=== PATIENT | female | born 1985 | race Caucasian/White ===

== ENCOUNTER 2018-01-18 13:27 | Emergency (ER) | payer MEDICAID ==
--- NOTE | 2018-01-18 14:04 | Emergency Department Record ---
History of Present Illness - General Chief complaint: Rash Stated complaint: RASH Time Seen by Provider: 01/18/18 13:37 Source: Patient Mode of Arrival: Ambulatory Limitations: No limitations - History of Present Illness Initial comments: The patient has had an itchy rash all over for the last 2 weeks. She was told it could be scabies and was treated with a steroid cream and scabies cream. Now the itching is not better and the rash continues to come and go mainly on the abdomen. She denies any new medicines, soaps or new pets. MD complaint: Rash Onset/Timin -: Week(s) Location: Generalized Consistency: Constant Improves with: None Worsens with: None Context: None Associated symptoms: Itching Treatments Prior to Arrival: Other Treatment Prior to Arrival Comment:: NIX - Related Data Previous Rx's Medication Instructions Recorded Hydroxyzine HCl [Atarax] 25 mg PO TID PRN #21 tab 01/18/18 Prednisone [Prednisone 20Mg] 20 mg PO ASDIR #15 tab 01/18/18 Allergies Allergy/AdvReac Type Severity Reaction Status Date / Time diphenhydramine Allergy RASH Verified 01/18/18 13:42 [From Benadryl] Travel Screening - Travel/Exposure Within Last 30 Days Have you traveled within the last 30 days?: No - Travel/Exposure Within Last Year Have you traveled outside the [place] in the last year?: No - Additonal Travel Details Have you been exposed to anyone with a communicable illness?: No - Travel Symptoms Symptom Screening: None Review of Systems Constitutional: Denies: Chills, Fever Eyes: Denies: Eye discharge ENT: Denies: Congestion, Throat pain Respiratory: Denies: Cough, Dyspnea Past Medical History - SOCIAL HISTORY Smoking Status: Never smoker Alcohol Use: Occasional Drug Use: None - RESPIRATORY Hx Respiratory Disorders: No - CARDIOVASCULAR Hx Cardio Disorders: No - NEURO Hx Neuro Disorders: No - GI Hx GI Disorders: No - Hx Genitourinary Disorders: No - ENDOCRINE Hx Endocrine Disorders: No - MUSCULOSKELETAL Hx Musculoskeletal Disorders: No - PSYCH Hx Psych Problems: No - HEMATOLOGY/ONCOLOGY Hx Hematology/Oncology Disorders: No Family Medical History Any Significant Family History?: Yes Hx Diabetes: Mother Hx HTN: Father Physical Exam - General General Appearance: Alert, Oriented x3, Cooperative, No acute distress - Head Head exam: Atraumatic, Normocephalic, Normal inspection - Eye Eye exam: Normal appearance, PERRL - Neck Neck exam: Normal inspection, Full ROM. negative: Tenderness - Respiratory Respiratory exam: Normal lung sounds bilaterally. negative: Respiratory distress - Cardiovascular Cardiovascular Exam: Regular rate, Normal rhythm, Normal heart sounds - GI/Abdominal GI/Abdominal exam: Soft, Normal bowel sounds. negative: Tenderness - Extremities Extremities exam: Normal inspection, Full ROM, Normal capillary refill. negative: Tenderness - Neurological Neurological exam: Alert. negative: Motor sensory deficit - Skin Skin exam: Rash (There is a scattererd erythematous macular rash that appear to be mildly scaley lesions mainly on the abdomen and extremities. There is no rash that appears to be from insect bites or scabies. There is no rash between the toes or fingers.). negative: Urticaria Course Vital Signs 01/18/18 13:45 Temperature 97.7 F Pulse Rate 103 H Respiratory 16 Rate Blood Pressure 138/77 Pulse Ox 99 - Reevaluation(s) Reevaluation #1: I did discuss the need to treat for an allergic rxn and for possible Pityriasis Versicolor. She is to see her PCP later this week for recheck. 01/18/18 14:11 Reevaluation #2: I did discuss the issues taking the Atarax. She did have some facial swelling that COULD have been from Benadryl but most likely was from her allergic rxn. I did discuss the risks of taking the Atarax and that she COULD have facial or lip swelling or a worse allergic rxn and she does accept the risks. 01/18/18 14:13 Disposition Disposition: Discharge Clinical Impression: Skin rash Disposition: Home, Self-Care Condition: (2) Stable Instructions: Acute Rash (ED) Additional Instructions: Please use the Atarax and Prednisone as directed. Please also treat for Pityriasis Versicolor, use Selenium Sulfide 2.5% lotion, apply for 10 minutes on skin daily for 1-4 weeks. Please see your family doctor for recheck next week. Prescriptions: Hydroxyzine HCl [Atarax] 25 mg PO TID PRN #21 tab PRN Reason: Rash Prednisone [Prednisone 20Mg] 20 mg PO ASDIR #15 tab Forms: Patient Portal Access Time of Disposition: 14:04 Quality - Quality Measures Quality Measures: N/A - Blood Pressure Screening View Details: Yes Does Patient Have Any of the Following: No Blood Pressure Classification: Pre-Hypertensive BP Reading Systolic Measurement: 138 Diastolic Measurement: 77 Screening for High Blood Pressure: < Pre-Hypertensive BP, F/U Documented > [ G8950] Pre-Hypertensive Follow-up Interventions: Referral to alternative/primary care provider.
== END 2018-01-18 14:13 | disposition home or self-care (01) ==
LOC: ER 13:27
DX: R21 Rash and other nonspecific skin eruption (principal); R22.0 Localized swelling, mass and lump, head
CPT/HCPCS: 99282

== ENCOUNTER 2018-01-30 09:51 | Emergency (ER) | payer MEDICAID ==
[2018-01-30] MEDS ORDERED: HYDROXYZINE PAMOATE 25 MG CAPSULE PO ONE (10:07)
--- NOTE | 2018-01-30 10:14 | Emergency Department Record ---
History of Present Illness - General Chief complaint: Rash Stated complaint: RASH ON ARMS/LEGS SIDES Time Seen by Provider: 01/30/18 10:02 Source: Patient Mode of Arrival: Ambulatory Limitations: No limitations - History of Present Illness Initial comments: The patient is here due to a rash on her body off and on for a month. She was here in the ER about 2 weeks ago for it and was given Atarax and Prednisone and it did resolve. Now yesterday the rash returned mainly on the arms, legs, and minimally the face. She has had no SAIDA, SOB, difficulty swallowing or breathing. She has not taken anything for it today and just decided to come to the ER. MD complaint: Rash Onset/Timin -: Week(s) Location: Face, LUE, RUE, LLE, RLE Consistency: Getting worse Worsens with: None Treatments Prior to Arrival: Benadryl - Related Data Previous Rx's Medication Instructions Recorded Hydroxyzine HCl [Atarax] 25 mg PO TID PRN #21 tab 01/18/18 Hydroxyzine HCl [Atarax] 25 mg PO TID #21 tablet 01/30/18 Allergies Allergy/AdvReac Type Severity Reaction Status Date / Time diphenhydramine Allergy RASH Verified 01/18/18 13:42 [From Benadryl] Travel Screening - Travel/Exposure Within Last 30 Days Have you traveled within the last 30 days?: No - Travel/Exposure Within Last Year Have you traveled outside the [place] in the last year?: No - Additonal Travel Details Have you been exposed to anyone with a communicable illness?: No - Travel Symptoms Symptom Screening: None Review of Systems Constitutional: Denies: Chills, Fever Eyes: Denies: Eye discharge ENT: Denies: Congestion Respiratory: Denies: Cough, Dyspnea Past Medical History - SOCIAL HISTORY Smoking Status: Never smoker Alcohol Use: Rare Drug Use: None - RESPIRATORY Hx Respiratory Disorders: No - CARDIOVASCULAR Hx Cardio Disorders: No - NEURO Hx Neuro Disorders: No - GI Hx GI Disorders: No - Hx Genitourinary Disorders: No - ENDOCRINE Hx Endocrine Disorders: No - MUSCULOSKELETAL Hx Musculoskeletal Disorders: No - PSYCH Hx Psych Problems: No - HEMATOLOGY/ONCOLOGY Hx Hematology/Oncology Disorders: No Family Medical History Any Significant Family History?: Yes Hx Diabetes: Mother Hx HTN: Father Physical Exam - General General Appearance: Alert, Oriented x3, Cooperative, No acute distress - Head Head exam: Atraumatic, Normocephalic, Normal inspection - Eye Eye exam: Normal appearance, PERRL, EOMI - ENT Throat exam: Normal inspection. negative: Tonsillar erythema, Tonsillar exudate - Neck Neck exam: Normal inspection, Full ROM. negative: Tenderness - Respiratory Respiratory exam: Normal lung sounds bilaterally. negative: Respiratory distress - Cardiovascular Cardiovascular Exam: Regular rate, Normal rhythm, Normal heart sounds - GI/Abdominal GI/Abdominal exam: Soft, Normal bowel sounds. negative: Tenderness - Extremities Extremities exam: Normal inspection, Full ROM, Normal capillary refill. negative: Tenderness - Neurological Neurological exam: Alert. negative: Motor sensory deficit - Skin Skin exam: Rash (There is a scattered macular erythematous rash mainly to the arms. The lesions are irregular and less than 1 cm in size. They do clara and are not tender or palpable.) Course Vital Signs 01/30/18 09:53 Temperature 97.4 F L Pulse Rate 90 Respiratory 20 Rate Blood Pressure 184/100 Pulse Ox 99 - Reevaluation(s) Reevaluation #1: The patient is doing better at this time. She denies any itching and states the rash may be slightly better. 01/30/18 11:04 Reevaluation #2: The patient is doing very well at this time. She denies any trouble breathing or swallowing. Her rash is still present mainly on the arms but is not itchy. We are trying to get the patient into the Specialty clinic with Dr. Way and are told they will contact the patient later today for further evaluation. 01/30/18 11:27 Medical Decision Making - Lab Data Result diagrams: 01/30/18 10:25 01/30/18 10:25 Disposition Disposition: Discharge Clinical Impression: Skin rash Disposition: Home, Self-Care Condition: (2) Stable Instructions: Acute Rash (ED) Additional Instructions: Please take the Atarax along with Pepcid as directed and please see Dr. Way in the Specialty clinic tomorrow. Please also see your family doctor due to your elevated BP. Return to the ER for any worsening symptoms. Prescriptions: Hydroxyzine HCl [Atarax] 25 mg PO TID #21 tablet Referrals: [facility] [Provider Group] Forms: Patient Portal Access Time of Disposition: 11:31 Quality - Quality Measures Quality Measures: N/A - Blood Pressure Screening View Details: Yes Does Patient Have Any of the Following: No Blood Pressure Classification: Hypertensive Reading Systolic Measurement: 184 Diastolic Measurement: 100 Screening for High Blood Pressure: < First Hypertensive BP, F/U Documented > [ G8950] First Hypertensive Follow-up Interventions: Referral to alternative/primary care provider.
[2018-01-30 10:29] LABS: BASO % 0.3 % (0-6); GRAN % 71.8 % (47-80); HEMATOCRIT 46.5 % (35.0-47.0); HEMOGLOBIN 15.4 gm/dl (11.6-16.0); LYMPH % 20.9 % (16-45); MEAN CELL VOLUME 95.9 fl (81-97); MEAN CORPUSCULAR HEMOGLOBIN 31.8 pg (27-33); MEAN CORPUSCULAR HGB CONC 33.1 g/dl (32-36); MEAN PLATELET VOLUME 8.5 fl (7.4-10.4); PLATELET COUNT 377 K/uL (130-400); RED BLOOD COUNT 4.85 M/uL (3.80-5.40); RED CELL DISTRIBUTION WIDTH 13.3 % (11.5-14.5); WHITE BLOOD COUNT W/O DIFF 12.9 K/uL (4.2-12.2)
[2018-01-30 10:40] LABS: BLOOD UREA NITROGEN 16 mg/dL (6-20); CREATININE 0.7 mg/dL (0.5-0.9); EST GLOMERULAR FILTRATION RATE > 60 mL/min
[2018-01-30 10:41] LABS: TOTAL PROTEIN 6.9 g/dL (6.6-8.7)
[2018-01-30 10:43] LABS: GLUCOSE,RANDOM 95 mg/dL (74-109)
[2018-01-30 10:45] LABS: ALB/GLOB RATIO 1.6 (1.1-1.8); ALBUMIN 4.2 g/dL (4.0-5.0); ALKALINE PHOSPHATASE 64 U/L (35-104); ALT/SGPT 6 U/L (<33); AST/SGOT 14 U/L (10.0-35.0)
== END 2018-01-30 11:40 | disposition home or self-care (01) ==
LOC: ER 09:51
DX: R21 Rash and other nonspecific skin eruption (principal)
CPT/HCPCS: 80053; 84703; 85025; 99283

== ENCOUNTER 2018-03-30 10:11 | Emergency (ER) | payer MEDICAID ==
--- NOTE | 2018-03-30 10:38 | Emergency Department Record ---
History of Present Illness - General Chief complaint: Hives Stated complaint: HIVES Time Seen by Provider: 03/30/18 10:31 Source: Patient, RN notes reviewed Mode of Arrival: Ambulatory - History of Present Illness Initial comments: patient has hives and this recurrence started 2 weeks ago and she is out of her atarax and she is not allergic to benadryl it just doesn't do much and the benadryl needs to be removed from her list. Onset/Timin -: Week(s) Location: Generalized Severity: Mild Severity scale (1-10): 1 Consistency: Intermittent Improves with: None Worsens with: None Context: None Associated symptoms: Denies other symptoms Treatments Prior to Arrival: None - Related Data Previous Rx's Medication Instructions Recorded Hydroxyzine HCl [Atarax] 10 mg PO Q6HR #30 tablet 03/30/18 Prednisone [Prednisone 10Mg] 10 mg PO ASDIR #30 tab 03/30/18 Allergies Allergy/AdvReac Type Severity Reaction Status Date / Time No Known Drug Allergies Allergy Verified 03/30/18 10:40 Travel Screening - Travel/Exposure Within Last 30 Days Have you traveled within the last 30 days?: No - Travel/Exposure Within Last Year Have you traveled outside the [place] in the last year?: No - Additonal Travel Details Have you been exposed to anyone with a communicable illness?: No - Travel Symptoms Symptom Screening: None Review of Systems Reviewed: No additional complaints except as noted below Constitutional: Reports: As per HPI. Denies: Chills, Fever, Malaise, Night sweats, Weakness, Weight change Eyes: Reports: As per HPI. Denies: Eye discharge, Eye pain, Photophobia, Vision change ENT: Reports: As per HPI. Denies: Congestion, Dental pain, Ear pain, Epistaxis , Hearing loss, Throat pain Respiratory: Reports: As per HPI. Denies: Cough, Dyspnea, Hemoptysis, Stridor, Wheezes Cardiovascular: Reports: As per HPI. Denies: Arrhythmia, Chest pain, Dyspnea on exertion, Edema, Murmurs, Orthopnea, Palpitations, Paroxysmal nocturnal dyspnea, Rheumatic Fever, Syncope Endocrine: Reports: As per HPI. Denies: Fatigue, Heat or cold intolerance, Polydipsia, Polyuria Gastrointestinal: Reports: As per HPI. Denies: Abdominal pain, Constipation, Diarrhea, Hematemesis, Hematochezia, Melena, Nausea, Vomiting Genitourinary: Reports: As per HPI. Denies: Abnormal menses, Discharge, Dyspareunia, Dysuria, Frequency, Hematuria, Incontinence, Retention, Urgency Musculoskeletal: Reports: As per HPI. Denies: Arthralgia, Back pain, Gout, Joint swelling, Myalgia, Neck pain Skin: Reports: As per HPI. Denies: Bruising, Change in color, Change in hair/ nails, Lesions, Pruritus, Rash Neurological: Reports: As per HPI. Denies: Abnormal gait, Confusion, Headache, Numbness, Paresthesias, Seizure, Tingling, Tremors, Vertigo, Weakness Psychiatric: Reports: As per HPI. Denies: Anxiety, Auditory hallucinations, Depression, Homicidal thoughts, Suicidal thoughts, Visual hallucinations Hematological/Lymphatic: Reports: As per HPI. Denies: Anemia, Blood Clots, Easy bleeding, Easy bruising, Swollen glands Past Medical History - SOCIAL HISTORY Smoking Status: Never smoker Alcohol Use: Rare Drug Use: None - RESPIRATORY Hx Respiratory Disorders: No - CARDIOVASCULAR Hx Cardio Disorders: No - NEURO Hx Neuro Disorders: No - GI Hx GI Disorders: No - Hx Genitourinary Disorders: No - ENDOCRINE Hx Endocrine Disorders: No - MUSCULOSKELETAL Hx Musculoskeletal Disorders: No - PSYCH Hx Psych Problems: No - HEMATOLOGY/ONCOLOGY Hx Hematology/Oncology Disorders: No Family Medical History Any Significant Family History?: Yes Hx Diabetes: Mother Hx HTN: Father Physical Exam - General General Appearance: Alert, Oriented x3, Cooperative, No acute distress - Head Head exam: Normal inspection - Eye Eye exam: Normal appearance, PERRL Pupils: Normal accommodation - ENT ENT exam: Normal exam, Mucous membranes moist, Normal external ear exam, Normal orophraynx, TM's normal bilaterally Ear exam: Normal external inspection. negative: External canal tenderness Nasal Exam: Normal inspection. negative: Discharge, Sinus tenderness Mouth exam: Normal external inspection, Tongue normal Teeth exam: Normal inspection. negative: Dental caries Throat exam: Normal inspection. negative: Tonsillar erythema, Tonsillar exudate - Neck Neck exam: Normal inspection, Full ROM. negative: Tenderness - Respiratory Respiratory exam: Normal lung sounds bilaterally. negative: Respiratory distress - Cardiovascular Cardiovascular Exam: Regular rate, Normal rhythm, Normal heart sounds - GI/Abdominal GI/Abdominal exam: Soft, Normal bowel sounds. negative: Tenderness - Rectal Rectal exam: Deferred - exam: Deferred - Extremities Extremities exam: Normal inspection, Full ROM, Normal capillary refill. negative: Tenderness - Back Back exam: Reports: Normal inspection, Full ROM. Denies: Muscle spasm, Rash noted, Tenderness - Neurological Neurological exam: Alert, Normal gait, Oriented X3, Reflexes normal - Psychiatric Psychiatric exam: Normal affect, Normal mood - Skin Skin exam: Dry, Intact, Normal color, Warm Course Vital Signs 03/30/18 10:17 Temperature 98.2 F Pulse Rate 121 H Respiratory 20 Rate Blood Pressure 145/113 Pulse Ox 100 Disposition Clinical Impression: Acute urticaria Disposition: Home, Self-Care Condition: (1) Good Instructions: Urticaria (ED) Additional Instructions: follow up with a family DrSebastian Prescriptions: Hydroxyzine HCl [Atarax] 10 mg PO Q6HR #30 tablet Prednisone [Prednisone 10Mg] 10 mg PO ASDIR #30 tab Time of Disposition: 10:40 Quality - Quality Measures Quality Measures: N/A - Blood Pressure Screening Does Patient Have Any of the Following: No Blood Pressure Classification: Hypertensive Reading Systolic Measurement: 145 Diastolic Measurement: 113 Screening for High Blood Pressure: < Pre-Hypertensive BP, F/U Documented > [ G8950] Pre-Hypertensive Follow-up Interventions: Referral to alternative/primary care provider.
== END 2018-03-30 10:51 | disposition home or self-care (01) ==
LOC: ER 10:11
DX: L50.8 Other urticaria (principal)
CPT/HCPCS: 99282